=== PATIENT | female | born 1965 | race Caucasian/White ===

== ENCOUNTER 2020-04-13 10:19 | Emergency (ER) | payer OTHER ==
[2020-04-13 11:00] LABS: BILIRUBIN NEGATIVE (NEGATIVE); BLOOD NEGATIVE Ery/uL (NEGATIVE); CLARITY CLEAR (CLEAR); COLOR YELLOW (YELLOW); GLUCOSE (U) NORMAL (NORMAL); LEUKOCYTES NEGATIVE Leu/uL (NEGATIVE); NITRITE NEGATIVE (NEGATIVE); PROTEIN NEGATIVE (NEGATIVE); UROBILINOGEN 0.2 mg/dL (0.2-1.0)
[2020-04-13] MEDS ORDERED: CYCLOBENZAPRINE10 MG PO (11:39)
[2020-06-05] MEDS ORDERED: VITAMIN D31250 MC1 PO (10:19)
== END 2020-04-13 11:43 | disposition home or self-care (01) ==
LOC: FER 10:19
PROVIDERS: Emergency Medicine
DX: M54.5 Low back pain (principal); N20.0 Calculus of kidney; Z87.442 Personal history of urinary calculi; Z98.890 Other specified postprocedural states; Z88.6 Allergy status to analgesic agent
CPT/HCPCS: 81003

== ENCOUNTER → 2020-06-12 | Day surgery (SDC) | payer OTHER ==
[~2020-06-12] MED LIST: CYCLOBENZAPRINE10 MG PO; VITAMIN D31250 MC1 PO
[2020-06-12 07:34] LABS: HCT 43.8 % (37.0-47.0); HGB 15.1 g/dl (12.5-16.0); MCH 30.5 pg (25.0-31.0); MCHC 34.5 g/dL (32.0-36.0); MCV 88.5 fL (78.0-100.0); MPV 8.4 fL (6.0-9.5); RBC 4.95 M/uL (4.20-5.40); RDW 12.9 % (11.5-14.0); WBC 6.5 K/uL (4.0-10.5)
[2020-06-12 07:52] LABS: ALBUMIN 4.4 g/dL (3.4-5.0); BILIRUBIN - TOTAL 0.8 mg/dL (0.2-1.0); BUN/CREAT RATIO (CALC) 23.1 RATIO; CREATININE 0.78 mg/dL (0.51-0.95); GLOBULIN (CALCULATION) 3.7 g/dL; POTASSIUM 3.8 mmol/L (3.5-5.1); TOTAL PROTEIN 8.1 g/dL (6.4-8.2)
== END | disposition home or self-care (01) ==
LOC: FAS 07:06
PROVIDERS: Surgery
DX: Z12.11 Encounter for screening for malignant neoplasm of colon (principal); K42.9 Umbilical hernia without obstruction or gangrene; K57.30 Diverticulosis of large intestine without perforation or abscess without bleeding; N20.0 Calculus of kidney; J30.9 Allergic rhinitis, unspecified; Z88.6 Allergy status to analgesic agent; Z20.822 Contact with and (suspected) exposure to COVID-19; Z98.890 Other specified postprocedural states
CPT/HCPCS: 36415; 80053; J1610; J2250; J2704; J7120